=== PATIENT | female | born 1975 | race Caucasian/White ===

== ENCOUNTER 2021-07-20 09:33 | Emergency (ER) | payer BC ==
[~2021-07-20] VITALS: Ht 165.1 cm; Wt 63.5 kg
--- NOTE | 2021-07-20 09:48 | NUR ---
DR MOHAN AT BEDSIDE FOR EVALUATION
[2021-07-20] MEDS ORDERED: ONDANSETRON ODT 4 MG TAB.RAPDIS SL ONE (10:15)
[2021-07-20 10:27] LABS: *URINE HCG, QUAL NEG (NEGATIVE)
[2021-07-20] MEDS ORDERED: ONDANSETRON ODT 4 MG TAB.RAPDIS ONE (10:28)
[2021-07-20 10:36] LABS: *AMPHETAMINE, URINE NEGATIVE (NEGATIVE); *CANNABINOID, URINE NEGATIVE (NEGATIVE); *COCCAINE, URINE NEGATIVE (NEGATIVE); *OPIATE, URINE NEGATIVE (NEGATIVE); *PHENCYCLIDINE SCREEN,URINE NEGATIVE (NEGATIVE)
--- NOTE | 2021-07-20 10:40 | NUR ---
Patient denies nausea. Patient was seen drinking from her own drink (an orange colored can of Bubbly brand). Patient discharged to home in stable condition and brisk steady gait. Written and verbal after care instructions given. Patient verbalizec understanding and compliance of instructions. Stressed follow up with primary doctor or return to ER for worsening s/s.
== END 2021-07-20 10:40 | disposition home or self-care (01) ==
LOC: ER 09:36
DX: G45.4 Transient global amnesia (principal); R11.0 Nausea; T50.905A Adverse effect of unspecified drugs, medicaments and biological substances, initial encounter; Y92.89 Other specified places as the place of occurrence of the external cause; E03.9 Hypothyroidism, unspecified; J45.909 Unspecified asthma, uncomplicated
CPT/HCPCS: 84703; 87491; A4663; Q0162